=== PATIENT | female | born 1955 | race Caucasian/White ===

== ENCOUNTER → 2016-09-16 | Outpatient (CLI) | payer OTHER ==
[2016-09-16 11:51] LABS: MEAN CORPUSCULAR HGB CONC 33.7 g/dl (32.0-36.5); MEAN CORPUSCULAR VOLUME 101.1 fl (80.0-96.0); RED CELL DISTRIBUTION WIDTH 12.8 % (11.5-14.5)
[2016-09-16 12:16] LABS: ALBUMIN 3.9 GM/DL (3.2-5.2); ALBUMIN/GLOBULIN RATIO 1.18 (1.00-1.93); ALKALINE PHOSPHATASE 86 U/L (45-117); ALT/SGPT 21 U/L (12-78); ANION GAP 8 MEQ/L (8-16); AST/SGOT 26 U/L (15-37); BILIRUBIN,TOTAL 0.6 MG/DL (0.2-1.0); BLOOD UREA NITROGEN 16 MG/DL (7-18); CARBON DIOXIDE LEVEL 27 MEQ/L (21-32); CHLORIDE LEVEL 105 MEQ/L (98-107); CHOLESTEROL LEVEL 247 MG/DL (<200); CREATININE FOR GFR 0.97 MG/DL (0.55-1.02); GLOMERULAR FILTRATION RATE > 60.0 (>45); GLUCOSE, FASTING 86 MG/DL (80-110); POTASSIUM SERUM 5.1 MEQ/L (3.5-5.1); SODIUM LEVEL 140 MEQ/L (136-145); TOTAL PROTEIN 7.2 GM/DL (6.4-8.2); TRIGLYCERIDES LEVEL 78 MG/DL (<150)
== END ==
LOC: M LRY 08:19
PROVIDERS: ATTEND Nurse Practitioner Family
DX: E55.9 Vitamin D deficiency, unspecified (principal); I10 Essential (primary) hypertension; E78.5 Hyperlipidemia, unspecified

== ENCOUNTER → 2016-10-22 | Outpatient (REF) | payer OTHER | LOC: M LAB REF 13:15 | PROVIDERS: ATTEND Ophthalmology | DX: L82.1 Other seborrheic keratosis (principal) ==

== ENCOUNTER 2017-11-30 11:27 | Emergency (ER) | payer OTHER, SELFPAY | END 2017-11-30 13:46 | disposition home or self-care (01) | LOC: M ED 11:27 | DX: M50.323 Other cervical disc degeneration at C6-C7 level (principal); S16.1XXA Strain of muscle, fascia and tendon at neck level, initial encounter; R00.1 Bradycardia, unspecified; X58.XXXA Exposure to other specified factors, initial encounter; Y92.9 Unspecified place or not applicable; Y93.9 Activity, unspecified; Y99.9 Unspecified external cause status; I10 Essential (primary) hypertension; Z72.0 Tobacco use; Z79.899 Other long term (current) drug therapy; Z88.5 Allergy status to narcotic agent | CPT/HCPCS: 72125 ==

== ENCOUNTER → 2019-02-07 | Outpatient (REF) | payer OTHER ==
[~2019-02-07] MED LIST: AMLO5TAB6; LISI10TA4; METO1TAB7; PRED20TA PO; ROBA500T PO
== END ==
LOC: M LAB REF 15:55
PROVIDERS: ATTEND Ophthalmology
DX: H02.831 Dermatochalasis of right upper eyelid (principal)

== ENCOUNTER → 2021-04-07 | Outpatient (CLI) | payer MEDICAID, MEDICARE ==
[~2021-04-07] MED LIST changes: +AMLO1TAB24; -AMLO5TAB6; +LISI10TA22; -LISI10TA4
--- NOTE | 2021-04-07 11:48 | REP ---
INDICATION: PVD COMPARISON: None. TECHNIQUE: Real time stephens scale and color Doppler evaluation of the bilateral lower extremity arterial vasculature using linear high frequency transducer. FINDINGS: Stephens scale and color images demonstrate mild to moderate amounts of partially calcified atheromatous plaquing bilaterally. No evidence for focal stenosis or occlusion noted. Doppler interrogation demonstrates normal biphasic arterial wave forms and velocities bilaterally. Right SHIV: 0.91 Left SHIV: 0.83 Peak systolic velocities (cm/sec) Common femoral artery: Right 112.4; Left 126.8 Profunda femoris: Right 104.9; Left 138.8 SFA (proximal): Right 100.0; Left 90.0 SFA (mid): Right 105.6; Left 119.8 SFA (distal): Right 120.3; Left 100.8 Popliteal artery: Right 59.9; Left 58.8 Tibioperoneal trunk: Right 56.8; Left 47.7 PHYSIOTHERAPY AIDE (prox.): Right 57.4; Left 83.9 PHYSIOTHERAPY AIDE (distal): Right 39.6; Left 30.5 CHRISTAL (prox.): Right 63.6; Left 73.5 CHRISTAL (distal): Right 64.9; Left 63.9 IMPRESSION: Atheromatous changes with areas of narrowing but no obvious focal occlusion or stenosis. <Electronically signed by Romeo Dominguez > 04/07/21 [id number]
== END ==
LOC: M RAD 10:19
PROVIDERS: ATTEND Internal Medicine
DX: I73.9 Peripheral vascular disease, unspecified (principal)

== ENCOUNTER → 2025-04-02 | Outpatient (CLI) | payer MEDICARE | LOC: M WUC 12:51 | PROVIDERS: ATTEND Registered Nurse | DX: R05.9 Cough, unspecified (principal) ==

== ENCOUNTER → 2025-04-10 | Outpatient (REF) | payer MEDICARE ==
[2025-04-10 17:26] LABS: ALT/SGPT 16.0 U/L (7.0-40); AST/SGOT 23.0 U/L (<34); CALCIUM LEVEL 9.2 MG/DL (8.3-10.6); CARBON DIOXIDE LEVEL 26.0 MMOL/L (20-31); CHLORIDE LEVEL 97.0 MMOL/L (98-107); CHOLESTEROL LEVEL 227.0 MG/DL (<200); CHOLESTEROL RISK RATIO 3.17 (<5); CREATININE FOR GFR 1.1 MG/DL (0.55-1.30); GLOMERULAR FILTRATION RATE 54.1 (>39); LDL CHOLESTEROL 135.6 MG/DL (<100); NON-HDL-C 155.4 MG/DL; POTASSIUM SERUM 5.1 MMOL/L (3.5-5.1); SODIUM LEVEL 130.0 MMOL/L (136-145); TRIGLYCERIDES LEVEL 99.0 MG/DL (<150)
[2025-04-10 17:42] LABS: BASO # 0.1 10^3/uL (0.0-0.2); BASO % 2.3 % (0.0-1.0); EOS # 0.2 10^3/uL (0.0-0.5); EOS % 4.5 % (0.0-3.0); LYMPH # 1.9 10^3/uL (1.5-5.0); LYMPH % 35.4 % (24.0-44.0); MONO # 0.3 10^3/uL (0.0-0.8); MONO % 5.9 % (2.0-8.0); NEUTROPHILS # 2.7 10^3/uL (1.5-8.5); NEUTROPHILS % 50.8 % (36.0-66.0); PLATELET COUNT, AUTOMATED 407 10^3/uL (150-450)
[2025-04-10 17:54] LABS: ESTIMATED AVERAGE GLUCOSE 108.0 MG/DL (60-110)
== END ==
LOC: M SFHCLERA 08:44
PROVIDERS: ATTEND Internal Medicine
DX: I10 Essential (primary) hypertension (principal); Z79.899 Other long term (current) drug therapy

== ENCOUNTER → 2025-04-22 | Outpatient (CLI) | payer MEDICARE | LOC: M WHC 08:23 | PROVIDERS: ATTEND Internal Medicine | DX: Z12.31 Encounter for screening mammogram for malignant neoplasm of breast (principal) ==